=== PATIENT | female | born 1955 | race Caucasian/White ===

== ENCOUNTER → 2024-07-15 10:44 | Outpatient (REF) | payer MEDICARE, BC, SELFPAY | LOC: RAD 10:44 | PROVIDERS: FAMILY PHYSICIAN Internal Medicine | DX: M89.9 Disorder of bone, unspecified (principal); M85.80 Other specified disorders of bone density and structure, unspecified site; M81.0 Age-related osteoporosis without current pathological fracture | CPT/HCPCS: 77080 ==

== ENCOUNTER → 2025-02-02 12:17 | Outpatient (REF) | payer MEDICARE, BC, SELFPAY ==
[2025-02-02 14:02] LABS: Blood Urea Nitrogen 27 mg/dl (7-17); Calcium 9.4 mg/dl (8.4-10.2); Carbon Dioxide 29 mmol/L (22-30); Chloride 104 mmol/L (98-107); Glucose 98 mg/dl (70-99); Potassium 4.3 mmol/L (3.5-5.1); Sodium 138 mmol/L (135-145); eGFR > 60.00
== END ==
LOC: REG 12:17
PROVIDERS: ATTENDING PHYSICIAN Student in an Organized Health Care Education/Training Program; FAMILY PHYSICIAN Internal Medicine
DX: I42.8 Other cardiomyopathies (principal)
CPT/HCPCS: 36415; 80048

== ENCOUNTER → 2025-03-25 08:44 | Outpatient (REF) | payer MEDICARE, BC, SELFPAY ==
[2025-03-25 11:04] LABS: ALT (SGPT) 64 U/L (0-35); AST (SGOT) 54 U/L (14-36); Albumin 4.3 g/dl (3.5-5.0); Alkaline Phosphatase 74 U/L (38-126); Total Protein 6.7 g/dl (6.3-8.2)
[2025-03-25 11:38] LABS: Ferritin 25.7 ng/ml (11.1-264.0)
[2025-03-25 19:06] LABS: Hepatitis B Surface Antigen Negative (Negative)
[2025-03-25 19:25] LABS: Hepatitis A Antibody, Total Positive (Negative); Hepatitis C Antibody Negative (Negative)
[2025-03-27 07:28] LABS: ANA, IgG Reflex to HEp-2 None Detected (None Detected)
== END ==
LOC: REG 08:44
PROVIDERS: ATTENDING PHYSICIAN Internal Medicine
DX: R74.01 Elevation of levels of liver transaminase levels (principal)
CPT/HCPCS: 36415; 80076; 82550; 82728; 86015; 86038; 86704; 86708; 86803; 87340